=== PATIENT | male | born 1970 | race African-American/Black ===

== ENCOUNTER → 2016-11-27 | Day surgery (SDC) | payer OTHER ==
[~2016-11-27] MED LIST: ANCEF VIAL 1 GM ONE; BENADRYL INJ 50 MG VIAL IVP PRN; DILAUDID INJ IVP ONE; DILAUDID INJ IVP PRN; DIPRIVAN VIAL ONE; DYLOJECT INJ ONE; FENTANYL INJ 250 mcg ONE; MARCAINE/EPINEPHRINE ONE; NEOSTIGMINE INJ ONE; NORCURON INJ 10 MG VIAL ONE; NS 1000 ML 1,000 ML ONE; NS 50 ML IV + SPIKE MINIBAG* 50 ML IV ONE; NS IRRIGATION 3000 ML 3,000 ML IR ONE; PERCOCET TAB 5/325 MG ONE; PHENERGAN INJ 25 MG IVP PRN; QUELICIN (OR ANECTINE) ONE; REGLAN INJ 10 MG VIAL IVP PRN; ROBINUL ONE; SUPRANE IN ONE; VERSED ONE; XYLOCAINE 2 % (PLAIN) ONE; ZOFRAN INJ 4 MG VIAL IVP PRN; ZOFRAN INJ 4 MG VIAL ONE
[2016-11-27 09:49] LABS: BASOPHILS % (AUTO) 0.4 % (0.2-1.0); EOSINOPHILS # (AUTO) 0.3 x10^3/uL (0.0-0.2); EOSINOPHILS % (AUTO) 4.1 % (0.9-2.9); HEMATOCRIT 37.3 % (42.0-54.0); HEMOGLOBIN 13.3 g/dL (13.5-18.0); LYMPHOCYTES % (AUTO) 32.7 % (21.0-51.0); MEAN CORPUSCULAR HGB CONC 35.6 g/dL (33.0-35.0); MEAN CORPUSCULAR VOLUME 78.7 fL (80.0-100.0); MEAN PLATELET VOLUME 7.9 fL (7.4-11.0); MONOCYTES # (AUTO) 0.6 x10^3/uL (0.3-0.8); MONOCYTES % (AUTO) 9.7 % (0.0-13.0); NEUTROPHILS # (AUTO) 3.3 x10^3/uL (2.2-4.8); NEUTROPHILS % (AUTO) 53.1 % (42.0-75.0); PLATELET COUNT 199 X10^3/uL (150.0-450.0); RED BLOOD COUNT 4.74 X10^6/uL (4.7-6.0); RED CELL DISTRIBUTION WIDTH 14.3 % (11.6-16.5); WHITE BLOOD COUNT 6.3 X10^3/uL (3.6-10.0)
[2016-11-27 10:00] LABS: ALANINE AMINOTRANSFERASE 25 Units/L (12-78); ALBUMIN 3.6 g/dL (3.4-5.0); ALKALINE PHOSPHATASE 56 Units/L (46-116); ASPARTATE AMINO TRANSFERASE 17 Units/L (15-37); BLOOD UREA NITROGEN 11 mg/dL (7-18); CALCIUM 8.1 mg/dL (8.5-10.1); CHLORIDE 110 mmol/L (98-107); CREATININE 1.03 mg/dL (0.70-1.30); GLUCOSE 97 mg/dL (65-99); SODIUM 144 mmol/L (136-145); TOTAL PROTEIN 6.9 g/dL (6.4-8.2); eGFR BLACK RACES > 60 (>60); eGFR NON BLACK RACES > 60 (>60)
[2016-11-27] MEDS: LR 1000 ML IV 1,000 ML IV ONE ×2 (11:37→11:53)
--- NOTE | 2016-11-27 12:20 | OR.GENERIC ---
Post-Op Note Generic - Post-Op Note Operative Report: Operative Report Date of Operation: November 27, 2016 Pre-Operative Diagnosis: Biliary dyskinesia. Post-Operative Diagnosis: 1. Chronic cholecystitis. 2. Biliary dyskinesia. Procedure: Laparoscopic cholecystectomy. Surgeon: Sherman Martinez MD. [employer] Teacher: Rosaline Banks CRNA. Specimen: Gallbladder. Estimated blood loss: Less than 100 mL. Complications: None. Summary: The patient is a 46 year old male who presented with joey;iary dyskinesia. The patient was offered cholecystectomy. The risk and benefits of the procedure including difficulty with anesthesia, bleeding, infection, conversion to open procedure, bile leak, hernia formation, DVT, as well as PE were discussed with the patient. The patient understood these risks and requested the procedure. On November 27, 2016, the patient was brought to the operative theatre. A time out was performed verifying the patient and procedure. The patient received Ancef for pre-operative antibiosis. After satisfactory induction of general endotracheal anesthesia, the abdomen was prepped with Chloraprep and draped in the usual sterile fashion. The skin and subcutaneous tissue inferior to the umbilicus was anesthetized using local anesthetic. The skin was incised sharply. A 12 mm trocar was placed though the incision and into the peritoneal cavity using the Optiview technique. Carbon dioxide was infiltrated through this trocar to obtain a pneumoperitoneum of 15 mm Hg. A camera was placed through this trocar and swept in all directions. No injury was seen from entering the peritoneal cavity. A site was selected in the subxiphoid location for our 2nd trocar. The skin and fascia was anesthetized using local anesthetic. The skin was incised sharply. A 5 mm trocar was placed into the peritoneal cavity under direct visualization. In a similar manner, two additional 5 mm trocars were placed. The first was placed in the mid- clavicular line approximately 2 fingerbreadths inferior to the left costal margin and a second in the anterior axillary line approximately 2 fingerbreadths inferior to the left costal margin. The patient was placed in reverse Trendelenburg and rotated to the patients left. The gallbladder was grasped at the fundus and elevated cephalad and slightly lateral. Omental attachments were taken down using blunt dissection and electrocautery. The peritoneum on the medial and lateral aspects of the infundibulum of the gallbladder was scored using hook electrocautery. Using blunt dissection, the cystic artery and duct were isolated. The critical view of safety was obtained. Both of these structures were divided between endoclips. The gallbladder was dissected free using hook electrocautery. The gallbladder was placed in an endobag and removed through the umbilical trocar site without difficulty. The trocar and camera were placed back inside the abdomen. Our clips were noted in good position. A small branch of the cystic artery was seen with active bleeding. This was controlled with an endoclip. No further bleeding was seen. Bleeding of the gallbladder fossa was controlled using electrocautery. At this point, the 5 mm trocars were removed under direct visualization. No bleeding was seen. The umbilical trocar was then removed and pneumoperitoneum released. The fascia at the umbilicus was closed using a 0 -Vicryl placed in a [id number] configuration. The skin edges at all incisions were re-approximated using inverted, interrupted 4-0 Monocryl sutures. Benzoin and Steri-strips were placed. Sterile dressings were placed. The patient was awakened and taken to the recovery room in stable condition. There were no complications. All counts were correct.
[2016-11-27 14:00] VITALS: BP 112/73
== END | disposition home or self-care (01) | DRG 419 ==
LOC: SURG1 09:01
PROVIDERS: ATTEND Student in an Organized Health Care Education/Training Program
PROC: 0FT44ZZ Resection of Gallbladder, Percutaneous Endoscopic Approach (ICD-10-PCS; principal; 2016-11-27 08:30)
DX: K81.1 Chronic cholecystitis (principal); K82.8 Other specified diseases of gallbladder
CPT/HCPCS: 36415; 80053; 85025; A4216; A4222; S0020; J0330; J0690; J1170; J2001; J2250; J2405; J2710; J3010; J3490; J7120